=== PATIENT | male | born 1930 | race Caucasian/White ===

== ENCOUNTER → 2016-11-24 18:59 | Outpatient (CLI) | payer MEDICARE, OTHER ==
[~2016-11-24 18:59] MED LIST: BACLOFEN10 MG PO; CALCIUM 500 + D1 TAB PO; CARAFATE1 G PO; ELIQUIS2.5 MG PO; FERROUS SULFAT325 MG PO; HYDROCODONE-APA1 TAB PO; LEVOTHYROXINE100 MCG PO; LUNESTA3 MG PO; METOPROLOL TART50 MG PO; MYRBETRIQ50 MG PO; OCUVITE TABLET1 TA1 PO; PROTONIX40 MG PO; SINGULAIR10 MG PO
== END | disposition home or self-care (01) ==
LOC: D.LABREF 18:59
DX: M17.11 Unilateral primary osteoarthritis, right knee (principal); Z11.8 Encounter for screening for other infectious and parasitic diseases

== ENCOUNTER 2016-12-10 09:00 | Inpatient (IN) | payer MEDICARE, OTHER ==
[~2016-12-10] VITALS: Ht 182.9 cm; Wt 68.0 kg
[~2016-12-10 09:00] MED LIST changes: -ELIQUIS2.5 MG PO; -HYDROCODONE-APA1 TAB PO
[2016-12-10 09:02] LABS: BASOPHILS 0.2 % (0.0-2.0); EOSINOPHILS 2.8 % (0-7); HEMATOCRIT 35.3 % (42.0-54.0); HEMOGLOBIN 11.2 g/dL (13.5-17.5); IMMATURE GRANULOCYTES 0.7 % (0-5); LYMPHOCYTES 13.9 % (15-50); MCH 26.5 pg (26.0-34.0); MCHC 31.7 g/dL (31.0-37.0); MCV 83.6 fL (80.0-100.0); MEAN PLATELET VOLUME 9.3 fL (7.4-10.4); MONOCYTES 10.2 % (2-11); NEUTROPHILS 72.2 % (40-80); PLATELET COUNT 234 10x3/uL (130-400); RBC 4.22 10x6/uL (4.20-6.10); RDW 15.4 % (11.5-14.5); WBC 9.2 10x3/uL (4.8-10.8)
[2016-12-10 09:17] LABS: INR 0.94 (0.85-1.17); PROTIME 12.5 SECONDS (11.6-15.0)
[2016-12-10 09:18] LABS: APTT 32.5 SECONDS (22.8-39.4); CALC OSMOLALITY 266 mosm/kg (275-300); CALCIUM 8.1 mg/dL (8.5-10.1); CARBON DIOXIDE 26.4 mmol/L (21.0-32.0); CHLORIDE - SERUM 98 mmol/L (98-107); CREATININE - SERUM 0.6 mg/dL (0.6-1.3); GLUCOSE 133 mg/dL (74-106); SODIUM 133 mmol/L (136-145); UREA NITROGEN 10 mg/dL (7-18); eGFR NON AFRICAN AMERICAN > 90 mL/min (90-120)
[2016-12-10 10:21] LABS: APPEARANCE HAZY (CLEAR); COLOR YELLOW (YELLOW); SPECIFIC GRAVITY 1.025 (1.005-1.020)
[2016-12-10 10:22] LABS: LEUKOCYTE ESTERASE NEGATIVE (NEGATIVE); NITRITE NEGATIVE (NEGATIVE); PROTEIN TRACE mg/dL (NEGATIVE)
[2016-12-10 10:23] LABS: BILIRUBIN NEGATIVE (NEGATIVE); GLUCOSE NEGATIVE (NEGATIVE); KETONE NEGATIVE (NEGATIVE); UROBILINOGEN NORMAL (NORMAL)
[2016-12-14] VITALS (13 sets, daily range): BP systolic 121–162; BP diastolic 56–83; Ht 182.9 cm; Wt 68.0 kg
--- NOTE | 2016-12-14 10:32 | NUR ---
RIGHT FOOT AND LEG WASHED WITH HIBICLENS AND ALCOHOL PRIOR TO CHLORPREP. PER NAYA CAMPOS
--- NOTE | 2016-12-14 15:22 | NUR ---
* Is the patient Alert and Oriented? Yes 0 * How many steps to enter\exit or inside your home? 0 0 * PCP Dr. Menon 0 * Pharmacy [facility] 0 * Preadmission Environment Home with Family 0 * ADLs Independent 0 * List name and contact numbers for known caregivers / representatives who currently or will assist patient after discharge: Spouse - Jannette [phone] or [phone] 0 * Additional services required to return to the preadmission environment? Yes 0 * Can the patient safely return to the preadmission environment? Yes 0 * Has this patient been hospitalized within the prior 30 days at any hospital? No 12/14/2016 15:23 DCP: Discharge Planning Patient Name: MARIANN PHILIP Admission Status: Elective Accout number: [id number] Admission Date: 12-14-2016 : 1930 Admission Diagnosis: Attending: RENO Current LOS: 1 Anticipated DC Date: 12-17-2016 Planned Disposition: Outpatient PT\OT Primary Insurance: MEDICARE A & B Discharge Planning Comments: CM met with patient & spouse, Jannette, to assess dc plans/needs. Prior to admission, patient states he was independent with all ADL's. He was not using any assistive devices for mobility. Patient & spouse do not think patient can safely get to outpatient physical therapy at discharge. Discussed home health & SNF options. They agree home health for a week or two then outpatient therapy. ONI signed for [facility]. Anticipate DC 12/16 or 12/17. CM will follow.
--- NOTE | 2016-12-14 15:29 | NUR ---
* Is the patient Alert and Oriented? Yes 0 * How many steps to enter\exit or inside your home? 0 0 * PCP Dr. Menon 0 * Pharmacy [facility] 0 * Preadmission Environment Home with Family 0 * ADLs Independent 0 * List name and contact numbers for known caregivers / representatives who currently or will assist patient after discharge: Spouse - Jannette [phone] or [phone] 0 * Additional services required to return to the preadmission environment? Yes 0 * Can the patient safely return to the preadmission environment? Yes 0 * Has this patient been hospitalized within the prior 30 days at any hospital? No 12/14/2016 15:23 DCP: Discharge Planning Patient Name: MARIANN PHILIP Admission Status: Elective Accout number: [id number] Admission Date: 12-14-2016 : 1930 Admission Diagnosis: Attending: RENO Current LOS: 1 Anticipated DC Date: 12-17-2016 Planned Disposition: Outpatient PT\OT Primary Insurance: MEDICARE A & B Discharge Planning Comments: CM met with patient & spouse, Jannette, to assess dc plans/needs. Prior to admission, patient states he was independent with all ADL's. He was not using any assistive devices for mobility. Patient & spouse do not think patient can safely get to outpatient physical therapy at discharge. Discussed home health & SNF options. They agree home health for a week or two then outpatient therapy. ONI signed for [facility]. Anticipate DC 12/16 or 12/17. CM will follow.
--- NOTE | 2016-12-14 18:03 | NUR ---
PT HAS HAD A GOOD DAY WITH PAIN MED X 2 FOR NECK AND BACK PAIN-STATES RIGHT KNEE IS STILL NUMB. ICE TO RIGHT KNEE. CURRENTLY IN CPM MACHINE. BED ALARM ON FOR SAFETY. SCDS HAVE BEEN ON SINCE RETURNING FROM SURG. CALL LIGHT IN REACH
--- NOTE | 2016-12-14 19:20 | NUR ---
RECIEVED SHIFT REPORT. PT IS LYING IN BED. ALERT AND ORIENTED AND ABLE TO VERBALIZE NEEDS. IV IS PATENT AND FLUIDS ARE RUNNING PER ORDER. CPM ON. SCD'S ON. DRESSING TO RIGHT KNEE C/D/I. PT DENIES ANY PAIN AT THIS TIME. NO NEEDS ARE VERBALIZED AT THIS TIME. WILL CONTINUE TO MONITOR. SIDE RAILS ARE UP X 2. BED IS IN LOWEST POSITION. BED ALARM IS ON FOR SAFETY. CALL LIGHT IS WITHIN REACH.
--- NOTE | 2016-12-14 21:03 | NUR ---
SHIFT ASSESSMENT COMPLETED. NIGHT MEDS GIVEN WITH NO PROBLEMS. NO NEEDS ARE VOICED. WILL MONITOR. SIDE RAILS X 2. BED LOW. BED ALARM ON. CALL LIGHT IN REACH.
[2016-12-15 01:00] VITALS: BP 140/80
[2016-12-15 05:00] VITALS: BP 110/50
[2016-12-15 06:24] LABS: HEMATOCRIT 31.3 % (42.0-54.0); HEMOGLOBIN 9.9 g/dL (13.5-17.5); MCHC 31.6 g/dL (31.0-37.0); MCV 82.2 fL (80.0-100.0); MEAN PLATELET VOLUME 9.4 fL (7.4-10.4); RBC 3.81 10x6/uL (4.20-6.10); RDW 15.1 % (11.5-14.5); WBC 10.5 10x3/uL (4.8-10.8)
--- NOTE | 2016-12-15 07:15 | NUR ---
REPORT RECEIVED FROM ECONOMIC ANALYST NURSE. CALL LIGHT IN REACH.
--- NOTE | 2016-12-15 08:23 | NUR ---
ASSESSMENT COMPLETED. PERCOCET PO WITH AM MEDS. IN ROOM. BED ALARM ON. SCDs TO BLE. CALL LIGHT IN REACH. WILL CONTINUE WITH PLAN OF CARE.
[2016-12-15 09:47] VITALS: BP 132/52
--- NOTE | 2016-12-15 10:05 | NUR ---
AMBULATED TO DOOR THEN TO CHAIR WITH ASSISTANCE FROM PT. TOLERATED WELL.
--- NOTE | 2016-12-15 12:10 | NUR ---
EATING LUNCH AT THIS TIME. DENIES NEEDS AT THIS TIME. CALL LIGHT IN REACH.
--- NOTE | 2016-12-15 14:11 | NUR ---
OCUVITE AND NORCO PO. ICE PACK REFILLED AND PLACED TO KNEE. AT BEDSIDE. CALL LIGHT IN REACH.
[2016-12-15 14:31] VITALS: BP 139/54
--- NOTE | 2016-12-15 16:14 | NUR ---
PERCOCET PO PER STUDENT NURSE AND INSTRUCTOR.
[2016-12-15 16:27] VITALS: BP 148/46
--- NOTE | 2016-12-15 18:31 | NUR ---
NO CHANGES IN INITIAL ASSESSMENT. CALL LIGHT IN REACH. BED ALARM ON. SCDs TO BLE. WILL CONTINUE WITH PLAN OF CARE.
--- NOTE | 2016-12-15 19:15 | NUR ---
RECIEVED SHIFT REPORT. PT IS LYING IN BED. ALERT AND ORIENTED AND ABLE TO VERBALIZE NEEDS. IV IS PATENT AND SALINE LOC AT THIS TIME. CPM ON. SCD'S ON. PT IS AMBULATORY WITH ASSISTANCE. DRESSING TO RIGHT KNEE C/D/I. PT STATES PAIN IS 8/10. NO NEEDS ARE VERBALIZED AT THIS TIME. WILL CONTINUE TO MONITOR. SIDE RAILS ARE UP X 2. BED IS IN LOWEST POSITION. BED ALARM IS ON FOR SAFETY. CALL LIGHT IS WITHIN REACH.
--- NOTE | 2016-12-15 20:47 | NUR ---
SHIFT ASSESSMENT COMPLETED. NIGHT MEDS GIVEN WITH NO PROBLEMS. PT C/O PAIN 07/20. ADMINISTERED PRESCRIBED PRN NORCO PER ORDER. DENIES FURTHER NEEDS. WILL MONITOR. SIDE RAILS X 2. BED LOW. BED ALARM ON. CALL LIGHT IN REACH.
[2016-12-15 21:00] VITALS: BP 160/77
[2016-12-16 01:00] VITALS: BP 155/70
[2016-12-16 05:00] VITALS: BP 131/82
[2016-12-16 05:24] LABS: BASOPHILS 0.1 % (0.0-2.0); EOSINOPHILS 2.1 % (0-7); HEMATOCRIT 29.3 % (42.0-54.0); HEMOGLOBIN 9.3 g/dL (13.5-17.5); IMMATURE GRANULOCYTES 0.8 % (0-5); LYMPHOCYTES 11.1 % (15-50); MCH 26.1 pg (26.0-34.0); MCHC 31.7 g/dL (31.0-37.0); MCV 82.1 fL (80.0-100.0); MONOCYTES 16.3 % (2-11); NEUTROPHILS 69.6 % (40-80); PLATELET COUNT 207 10x3/uL (130-400); RBC 3.57 10x6/uL (4.20-6.10); RDW 14.8 % (11.5-14.5); WBC 10.2 10x3/uL (4.8-10.8)
[2016-12-16 05:39] LABS: CALC OSMOLALITY 261 mosm/kg (275-300); CALCIUM 7.4 mg/dL (8.5-10.1); CARBON DIOXIDE 29.1 mmol/L (21.0-32.0); CHLORIDE - SERUM 98 mmol/L (98-107); CREATININE - SERUM 0.6 mg/dL (0.6-1.3); GLUCOSE 128 mg/dL (74-106); SODIUM 130 mmol/L (136-145); UREA NITROGEN 11 mg/dL (7-18); eGFR NON AFRICAN AMERICAN > 90 mL/min (90-120)
--- NOTE | 2016-12-16 07:30 | NUR ---
RECIEVED PT DURING WALKING ROUNDS. PT RESTING IN BED WITH NO COMPLAINTS OF PAIN OR DISCOMFORT AT THIS TIME. ASSESSMENT DONE PER FLOWSHEET. CPM ON AND FUNCTIONING PROPERLY. BED IN LOW POSITION AND CALL LIGHT WITHIN REACH. WILL CONTINUE TO MONITOR.
--- NOTE | 2016-12-16 08:30 | NUR ---
CPM OFF AT THIS TIME. PT TOLERATED WELL. BED IN LOW POSITION AND CALL LIGHT WIHTIN REACH. WILL CONTINUE TO MONITOR.
--- NOTE | 2016-12-16 11:00 | NUR ---
PT USING I.S. WHEN ENTERED THE ROOM. USING EQUIPMENT PROPERLY. BED IN LOW POSITION AND CALL LIGHT WITHIN REACH. WILL CONTINUE TO MONITOR.
[2016-12-16 11:04] VITALS: BP 138/74
[2016-12-16 12:13] VITALS: BP 139/53
--- NOTE | 2016-12-16 13:13 | NUR ---
12/16/2016 13:10 DCP: Discharge Planning Patient Name: MARIANN PHILIP Encounter No: [id number] : 1930 Primary Insurance: MEDICARE A & B Anticipated DC Date: 12-17-2016 Planned Disposition: Home with Home Health External Planned Provider: [facility] DCP follow-up note: Order rec'd for IP rehab eval - patient does not meet criteria. Discussed SNF options with patient & spouse. They prefer to go home with home health. Patient's daughter will be here tomorrow afternoon & will be staying with them while he recovers. Initial HH referral faxed and called to Alyce with [employer] [facility]. They will see patient Wednesday. Patient and family in agreement with discharge plan. No changes to plan. Case management will follow and assist as needed. Maday Srivastava
--- NOTE | 2016-12-16 14:04 | NUR ---
Rehab Prescreening Consult recieved and the chart was reviewed. Spoke to the CM Maday Srivastava RN who said this patient would be discharging home. Yesi Cota RN Clinical Liaison, Rehab
[2016-12-16 16:35] VITALS: BP 138/58
--- NOTE | 2016-12-16 16:46 | NUR ---
FAMILY IN ROOM.PT WITHOUT DISTRESS.CALL LIGHT IN REACH
--- NOTE | 2016-12-16 18:05 | NUR ---
CPM ON AT THIS TIME
--- NOTE | 2016-12-16 19:00 | NUR ---
BEDSIDE REPORT RECEIVED AND CARE OF PT ASSUMED. PT LYING IN SEMI BUTT'S POSITION WATCHING TV. IV IN LEFT FA SALINE LOCKED. CPM IN USE ON RIGHT KNEE. DRESSING ON RIGHT KNEE CLEAN AND DRY. WILL MONITOR CLOSELY FOR NEEDS. CALL LIGHT WITHIN REACH.
[2016-12-16 20:48] VITALS: BP 148/68
--- NOTE | 2016-12-16 21:15 | NUR ---
CPM REMOVED FROM RIGHT KNEE. POSITIONED FOR COMFORT. CALL LIGHT WITHIN REACH.
--- NOTE | 2016-12-16 22:10 | NUR ---
HS MEDICATIONS GIVEN. WILL CONTINUE TO MONITOR FOR NEEDS. CALL LIGHT WITHIN REACH.
--- NOTE | 2016-12-16 22:10 | NUR ---
HS MEDICATIONS GIVEN TO INCLUDE PERCOCET PER PRN ORDER FOR PAIN. WILL CONTINUE TO MONITOR FOR NEEDS. CALL LIGHT WITHIN REACH.
[2016-12-17 00:18] VITALS: BP 139/58
--- NOTE | 2016-12-17 02:17 | NUR ---
PT RESTING QUIETLY IN SUPINE POSITON WITH EYES CLOSED. CALL LIGHT WITHIN REACH.
--- NOTE | 2016-12-17 02:26 | NUR ---
PT LYING IN SEMI BUTT'S POSITION. DECLINES PAIN MEDICATION AT THIS TIME. WILL CONTINUE TO MONITOR CLOSELY FOR NEEDS. CALL LIGHT WITHIN REACH.
[2016-12-17 04:27] VITALS: BP 144/55
[2016-12-17 05:10] LABS: BASOPHILS 0.1 % (0.0-2.0); EOSINOPHILS 2.4 % (0-7); HEMATOCRIT 26.5 % (42.0-54.0); HEMOGLOBIN 8.5 g/dL (13.5-17.5); IMMATURE GRANULOCYTES 0.5 % (0-5); LYMPHOCYTES 9.2 % (15-50); MCH 26.2 pg (26.0-34.0); MCHC 32.1 g/dL (31.0-37.0); MCV 81.5 fL (80.0-100.0); MEAN PLATELET VOLUME 9.9 fL (7.4-10.4); MONOCYTES 12.8 % (2-11); PLATELET COUNT 230 10x3/uL (130-400); RBC 3.25 10x6/uL (4.20-6.10); WBC 11.7 10x3/uL (4.8-10.8)
[2016-12-17 05:29] LABS: CALC OSMOLALITY 263 mosm/kg (275-300); CALCIUM 7.8 mg/dL (8.5-10.1); CARBON DIOXIDE 30.2 mmol/L (21.0-32.0); CHLORIDE - SERUM 98 mmol/L (98-107); CREATININE - SERUM 0.6 mg/dL (0.6-1.3); GLUCOSE 132 mg/dL (74-106); POTASSIUM - SERUM 4.1 mmol/L (3.5-5.1); SODIUM 131 mmol/L (136-145); UREA NITROGEN 11 mg/dL (7-18); eGFR NON AFRICAN AMERICAN > 90 mL/min (90-120)
--- NOTE | 2016-12-17 07:05 | NUR ---
PATIENT RECEIVED ALERT IN MID BUTT POSITION. RESPIRATIONS EVEN AND UNLABORED. RIGHT LEG IN CPM. TOLERATING WELL. DENIES PAIN AND NEEDS. AT BEDSIDE. SIDE RAILS UP X2. BED IN LOW POSITION. CALL LIGHT IN REACH.
[2016-12-17 08:07] VITALS: BP 142/64
--- NOTE | 2016-12-17 08:42 | NUR ---
ALERT IN BED EATING BREAKFAST. TOLERATING WELL. SCHEDULED MEDICATION ADMINISTERED. SIDE RAILS UP X2. BED IN LOW POSITION. CALL LIGHT IN REACH. DENIES PAIN AND OTHER NEEDS.
--- NOTE | 2016-12-17 09:00 | NUR ---
PATIENT ASSISTED UP TO RESTROOM ASSIST X1. INSTRUCTED TO PULL EMERGENCY CORD ONCE FINISHED. STATES UNDERSTANDING.
--- NOTE | 2016-12-17 09:26 | NUR ---
CM MET WITH FAMILY REGARDING POSSIBLE PLACEMENT IN A REHAB FACILITY. FAMILY WAS OPEN TO [facility]. SHERYL CALLED KALE AT [facility] AND SHE WILL BE HERE THIS AM TO EVALUATE THE PATIENT. CM WILL CONTINUE TO FOLLOW PATIENT WITH D/C NEEDS AND PLANS.
[2016-12-17 11:56] VITALS: BP 135/42
--- NOTE | 2016-12-17 12:30 | NUR ---
SITTING UP IN CHAIR AT BEDSIDE EATING LUNCH. TOLERATING WELL. CALL LIGHT IN REACH. DENIES NEEDS.
--- NOTE | 2016-12-17 14:08 | NUR ---
PATIENT ALERT IN MID BUTT POSITION RESTING QUIETLY. RESPIRATIONS EVEN AND UNLABORED. SIDE RAILS UP X2. BED IN LOW POSITION. CALL LIGHT IN REACH.
[2016-12-17 15:37] VITALS: BP 138/55
--- NOTE | 2016-12-17 16:00 | NUR ---
ALERT IN MID BUTT POSITION READING BOOK. NO SIGNS OF DISTRESS NOTED. AT BEDSIDE. SIDE RAILS UP X2. BED IN LOW POSITION. CALL LIGHT IN REACH.
--- NOTE | 2016-12-17 16:38 | NUR ---
CM REASSESSMENT NOTE: PATIENT HAS BE[facility] AND HAS BEEN ACCEPTED.
--- NOTE | 2016-12-17 18:00 | NUR ---
SITTING UP ALERT IN BED EATING DINNER. TOLERATING WELL. DENIES NEED FOR PAIN MEDICATION. CPM TO RIGHT LEG. AT BEDSIDE. SIDE RAILS UP X2. BED IN LOW POSITION. CALL LIGHT IN REACH.
[2016-12-17 20:00] VITALS: BP 132/69
--- NOTE | 2016-12-17 22:34 | NUR ---
REMOVED CPM @ 2100. GAVE PT PERCOCET FOR PAIN 03/20 WITH BEDTIME MEDS. PT TAKING BREAK FROM SCD'S. NO OTHER NEEDS. WILL REASSESS AND CONTINUE TO MONITOR.
[2016-12-18] VITALS (12 sets, daily range): BP systolic 102–148; BP diastolic 53–86
[2016-12-18 04:48] LABS: BASOPHILS 0.1 % (0.0-2.0); EOSINOPHILS 2.8 % (0-7); HEMOGLOBIN 8.1 g/dL (13.5-17.5); IMMATURE GRANULOCYTES 0.7 % (0-5); LYMPHOCYTES 10.7 % (15-50); MCH 26.2 pg (26.0-34.0); MCHC 32.4 g/dL (31.0-37.0); MCV 80.9 fL (80.0-100.0); MEAN PLATELET VOLUME 9.7 fL (7.4-10.4); NEUTROPHILS 71.7 % (40-80); PLATELET COUNT 233 10x3/uL (130-400); RBC 3.09 10x6/uL (4.20-6.10); WBC 9.6 10x3/uL (4.8-10.8)
[2016-12-18 05:04] LABS: CALC OSMOLALITY 264 mosm/kg (275-300); CARBON DIOXIDE 29.8 mmol/L (21.0-32.0); CHLORIDE - SERUM 99 mmol/L (98-107); CREATININE - SERUM 0.6 mg/dL (0.6-1.3); GLUCOSE 122 mg/dL (74-106); POTASSIUM - SERUM 4.1 mmol/L (3.5-5.1); SODIUM 132 mmol/L (136-145); UREA NITROGEN 11 mg/dL (7-18); eGFR NON AFRICAN AMERICAN > 90 mL/min (90-120)
--- NOTE | 2016-12-18 07:30 | NUR ---
REPORT RECEIVED FROM BETH IRVING. CALL LIGHT IN REACH.
--- NOTE | 2016-12-18 09:04 | NUR ---
ASSESSMENT COMPLETED. PERCOCET PO WITH AM MEDS ADMINISTERED. PT IN ROOM. CALL LIGHT IN REACH. WILL CONTINUE WITH PLAN OF CARE.
[2016-12-18] MEDS ORDERED: ELIQUIS2.5 MG PO (09:16)
[2016-12-18] MEDS ORDERED: HYDROCODONE-APA1 TAB PO (09:17)
--- NOTE | 2016-12-18 11:21 | NUR ---
HAS NOT RECEIVED A CALL FROM LAB ABOUT BLOOD. WILL CALL AND CHECK ON IT.
--- NOTE | 2016-12-18 12:17 | NUR ---
BENADRYL AND TYLENOL PER PREMED FOR BLOOD.
--- NOTE | 2016-12-18 12:55 | NUR ---
PRBC INITIATED @ 125 CC/HR VIA PUMP PER BETH GONGORA. VSS. DAUGHTER AT BEDSIDE. CALL LIGHT IN REACH.
--- NOTE | 2016-12-18 13:10 | NUR ---
VITAL SIGNS ARE STILL STABLE. WILL CONTINUE TO MONITOR.
--- NOTE | 2016-12-18 15:38 | NUR ---
SITTING UP IN CHAIR,FAMILY IN ROOM.PT WITHOUT DISTRESS.
--- NOTE | 2016-12-18 16:05 | NUR ---
UNIT OF BLOOD IS COMPLETED. VSS.
--- NOTE | 2016-12-18 16:16 | NUR ---
PERCOCET PO PER C/O PAIN OF 8. FAMILY IN ROOM. CALL LIGHT IN REACH.
--- NOTE | 2016-12-18 16:52 | NUR ---
REPORT CALLED TO BETH BYERS, AT [facility].
--- NOTE | 2016-12-18 18:10 | NUR ---
DC'D TO REHAB VEHICLE VIA WC WITH [facility] AND .
--- NOTE | 2016-12-20 11:01 | OP ---
PATIENT NAME: MARIANN PHILIP MEDICAL RECORD: [id number] :[birth year] LOCATION:[id number] ADMISSION DATE:12/14/16 SURGEON: TAMRA MARINELLI MD DATE OF OPERATION: 12/14/2016 PREOPERATIVE DIAGNOSIS: Degenerative arthritis, right knee. POSTOPERATIVE DIAGNOSIS: Degenerative arthritis, right knee. PROCEDURE: Right total knee arthroplasty. ANESTHESIA: General. INTRAOPERATIVE COMPLICATIONS: None. SUMMARY OF PATHOLOGIC FINDINGS: There is extensive osteoarthritis of the right knee consistent of all 3 compartments. IMPLANTS USED: [employer] Triathlon total knee arthroplasty system, size 7 distal femoral component, non-polyethylene insert, 7 tibial baseplate, 36 patellar component. OPERATIVE SUMMARY IN DETAIL: After obtaining the appropriate preoperative orthopedic surgery consents as well as anesthetic consultation, evaluation and clearance, the patient was brought to the operating room and placed on the operating table in supine position. After adequate general laryngeal mask was administered, tourniquet was placed about the proximal aspect of the right lower extremity. Right lower extremity was then prepped and draped in routine sterile fashion. The leg was elevated and exsanguinated, tourniquet was inflated to 350 mmHg. Routine midline incision was taken down for paramedian arthrotomy. Patella was everted and the distal femur was exposed. Distal intramedullary guide hole was created for distal femoral cutting. Likewise, proximal tibia was exposed. Soft tissue was further dissected away from the proximal tibia. Intramedullary guide hole was created for cutting in the proximal tibia. Measurements were taken. Chamfer cuts were made on the distal femur. Final trials corresponding to the above-mentioned components were put into place, taken through range of motion and thought to be stable in all planes. Final distal femoral and proximal tibial preparations were then followed by excising the articular surface from the arthritic patella. Final patellar preparations were made. The knee was irrigated substantially with pulsatile lavage. Bony ends were dried. Final components were cemented into place. All excess cement was removed. After the cement was allowed to harden, the knee was taken through range of motion and found to be stable in all planes with good patellar tracking. The paramedian arthrotomy was closed with #2 Ethibond followed by #1 Vicryl, 2-0 Vicryl, and skin suha. Sterile dressings were applied. The patient was awakened, taken to recovery room in stable condition. All final needle and sponge counts were correct. TRANSINT:[id number] Voice Confirmation ID: [id number] DOCUMENT ID: [id number] OPERATIVE REPORT [id number] MARIANN PHILIP MD, TAMRA SERRANO at 1101 CC: [id number] DICTATION DATE: 12/14/16 1106 CHIEF DEVELOPMENT OFFICER: 12/14/16 1743 DIS IN 12/18/16 [place] [id number] [place] [id number]
== END 2016-12-18 18:10 | DRG 470 ==
LOC: D.SDCHOLD 09:00 → D.MS 12-14 06:27 → D.SDCHOLD 12-14 06:27 → D.MS 12-14 11:21
PROVIDERS: Family Medicine; ADMIT Orthopaedic Surgery
PROC: 0SRC0J9 Replacement of Right Knee Joint with Synthetic Substitute, Cemented, Open Approach (ICD-10-PCS; principal; 2016-12-14 09:15)
DX: M17.11 Unilateral primary osteoarthritis, right knee (principal); D62 Acute posthemorrhagic anemia; E87.1 Hypo-osmolality and hyponatremia; K59.00 Constipation, unspecified; I10 Essential (primary) hypertension; J45.909 Unspecified asthma, uncomplicated

== ENCOUNTER 2017-02-04 10:16 | Emergency (ER) | payer MEDICARE, OTHER ==
[~2017-02-04 10:16] MED LIST changes: +ELIQUIS2.5 MG PO; +HYDROCODONE-APA1 TAB PO
[2017-02-04 11:11] LABS: BASOPHILS 0.5 % (0-2); EOSINOPHILS 3.6 % (0-7); HEMATOCRIT 32.7 % (42.0-54.0); HEMOGLOBIN 10.1 g/dL (13.5-17.5); IMMATURE GRANULOCYTES 0.6 % (0-5); LYMPHOCYTES 17.7 % (15-50); MCHC 30.9 g/dL (31.0-37.0); MCV 84.3 fL (80.0-100.0); MEAN PLATELET VOLUME 9.2 fL (7.4-10.4); MONOCYTES 12.3 % (2-11); NEUTROPHILS 65.3 % (40-80); PLATELET COUNT 257 10x3/uL (130-400); RBC 3.88 10x6/uL (4.20-6.10); WBC 6.4 10x3/uL (4.8-10.8)
[2017-02-04 11:26] LABS: ALBUMIN 2.6 g/dL (3.4-5.0); ALKALINE PHOSPHATASE 56 U/L (46-116); ALT (SGPT) 18 U/L (10-68); BILIRUBIN - TOTAL 0.23 mg/dL (0.2-1.3); CALC OSMOLALITY 267 mosm/kg (275-300); CALCIUM 8.4 mg/dL (8.5-10.1); CARBON DIOXIDE 29.8 mmol/L (21.0-32.0); CHLORIDE - SERUM 101 mmol/L (98-107); CREATININE - SERUM 0.7 mg/dL (0.6-1.3); GLUCOSE 125 mg/dL (74-106); POTASSIUM - SERUM 4.1 mmol/L (3.5-5.1); PROTEIN - SERUM 5.4 g/dL (6.4-8.2); SODIUM 134 mmol/L (136-145); UREA NITROGEN 10 mg/dL (7-18); eGFR NON AFRICAN AMERICAN > 90 mL/min (90-120)
[2017-02-04 12:06] LABS: APPEARANCE HAZY (CLEAR); BILIRUBIN NEGATIVE (NEGATIVE); COLOR DK YELLOW (YELLOW); GLUCOSE NEGATIVE (NEGATIVE); KETONE NEGATIVE (NEGATIVE); LEUKOCYTE ESTERASE NEGATIVE (NEGATIVE); NITRITE NEGATIVE (NEGATIVE); PROTEIN NEGATIVE (NEGATIVE); SPECIFIC GRAVITY 1.015 (1.005-1.020); UROBILINOGEN NORMAL (NORMAL)
== END 2017-02-04 14:14 | disposition home or self-care (01) ==
LOC: D.ER 10:16
PROVIDERS: Emergency Medicine
DX: R53.1 Weakness (principal); I10 Essential (primary) hypertension

== ENCOUNTER → 2017-02-05 12:56 | Outpatient (CLI) | payer MEDICARE, OTHER ==
--- NOTE | 2017-02-08 10:25 | EC ---
PATIENT:MARIANN PHILIP DATE OF SERVICE: 02/05/17 SEX: M MEDICAL RECORD: [id number] DATE OF : [birth year] LOCATION:[facility] AGE OF PATIENT: 86 ADMISSION DATE: 02/05/17 REFERRING PHYSICIAN: INTERPRETING PHYSICIAN: TERESA COTTON MD ECHOCARDIOGRAM REPORT ECHO CHARGES 4 ECHO COMPLETE CLINICAL DIAGNOSIS: WEAKNESS/DIZZINESS HX HTN ECHOCARDIOGRAPHIC MEASUREMENTS (adult normal given) AC root (d.<3.7cm) 3.6 LV Septum d (<1.2 cm> 1.4 Valve Excursion 1.3 LV Septum (systole) 1.5 Left Atria (s.<4.0cm> 4.1 LVPW d(<1.2cm) 1.4 RV (d.<2.3cm) 4.2 LVPW (sytole) 1.6 LV diastole(<5.6CM) 6.2 MV E-F(>70mm/sec) LV systole 4.2 LVOT Diameter 1.4 MV exc.(>10mm) 1.4 Est.ejection fraction (50-75%) Pericardial Effusion N DOPPLER: LVIT A 124 E 102 LA RVSP 39 LVOT 157 AOP1/2T Asc. Ao 241 RVOT RA PA AV Gradient Peak 23.15 AV Mean 12.37 AV Area 1.2 MV Gradient Peak 7.36 MV Mean 2.65 MV Area COMMENTS: Specimen Transporter: Jose JERNIGAN Missile Inspector:2 Dr. Brewster TAPE# PACS DATE OF SERVICE: 02/05/2017 FINDINGS: 1. Left ventricle chamber size is within normal limits. Left ventricular systolic function is normal. Overall ejection fraction estimated at 55%. 2. Left atrium is enlarged at 4.1 cm. Right atrium and right ventricular chamber sizes are as well mildly dilated. 3. Valvular structures: Aortic valve demonstrates mild calcific aortic stenosis. Valve area calculates 1.2 cm-squared. There is a gradient of 23 mm across the valve. The remaining valvular structures have normal structure and ECHOCARDIOGRAM REPORT [id number] MARIANN PHILIP motion. 4. Doppler interrogation elsewise reveals moderate mitral regurgitation, moderate tricuspid regurgitation, no other valvular insufficiency or stenosis. Pulmonary systolic pressure is estimated at 39 mmHg. 5. No evidence of pericardial effusion or left ventricular thrombus. TRANSINT:[id number] Voice Confirmation ID: [id number] DOCUMENT ID: [id number] TERESA COTTON MD at 1025 CC: [id number] DICTATION DATE: 02/05/17 1533 COUNTY ENGINEER: 02/06/17 0425 DEP CLI 02/05/17 [place] [id number] [place] [address]
== END | disposition home or self-care (01) ==
LOC: D.ECHO 12:56
DX: R55 Syncope and collapse (principal)

== ENCOUNTER 2017-04-08 21:50 | Inpatient (IN) | payer MEDICARE, OTHER ==
[~2017-04-08] VITALS: Ht 182.9 cm; Wt 74.8 kg
--- NOTE | ~2017-04-08 | EC ---
PATIENT:MARIANN PHILIP DATE OF SERVICE: 04/08/17 SEX: M MEDICAL RECORD: [id number] DATE OF : [birth year] LOCATION:[facility] D230 AGE OF PATIENT: 86 ADMISSION DATE: 04/08/17 REFERRING PHYSICIAN: INTERPRETING PHYSICIAN: TERESA GOODSON MD ECHOCARDIOGRAM REPORT ECHO CHARGES 5 ECHO LIMITED 1 DOPPLER ECHO COLOR FLOW 2 DOPPLER ECHO PULSE CLINICAL DIAGNOSIS: ECHOCARDIOGRAPHIC MEASUREMENTS (adult normal given) AC root (d.<3.7cm) 0 LV Septum d (<1.2 cm> 0 Valve Excursion 0 LV Septum (systole) 0 Left Atria (s.<4.0cm> 0 LVPW d(<1.2cm) 0 RV (d.<2.3cm) 0 LVPW (sytole) 0 LV diastole(<5.6CM) 0 MV E-F(>70mm/sec) 0 LV systole 0 LVOT Diameter 0 MV exc.(>10mm) 0 Est.ejection fraction (50-75%) Pericardial Effusion N DOPPLER: LVIT 0 A 0 E 0 LA 0 RVSP 44.0 LVOT 0 AOP1/2T 0 Asc. Ao 0 RVOT 0 RA 0 PA 0 AV Gradient Peak 0 AV Mean 0 AV Area 0 MV Gradient Peak 0 MV Mean 0 MV Area 0 COMMENTS: LIMITED STUDY (2-D,COLOR,DOPPLER) COMPLETE ECHO DONE ON 02/05/17 Driller'S Assistant: Debo LAZO Can Coverer:1 Dr. Goodson TAPE# PACS LIMITED TWO-DIMENSIONAL ECHOCARDIOGRAM WITH DOPPLER 1. Left ventricular chamber size is within normal limits. Left ventricular systolic function is normal. Overall ejection fraction is estimated at 50 percent. 2. Valvular structures have normal structure and motion. 3. Doppler interrogation reveals moderate mitral regurgitation, moderate tricuspid regurgitation. Pulmonary artery systolic pressure is mildly elevated estimated at 44 millimeters of mercury. 4. No evidence of pericardial effusion or left ventricular thrombus. ECHOCARDIOGRAM REPORT [id number] TAMERAMAGNUSMARIANNTERESA DIANE MD CC: [id number] DICTATION DATE: 04/09/17 1145 YARN WINDER: TC 04/10/17 1143 ADM IN [address] [place] [address]
[2017-04-08 21:45] VITALS: BP 182/89
[2017-04-08 22:00] VITALS: BP 166/81
--- NOTE | 2017-04-08 22:00 | NUR ---
PATIENT ARRIVED FROM AMBULANCE VIA STRETCHER. ABLE TO MOVE TO BED INDEPENDENTLY. ALERT TO PERSON, PLACE, TIME, AND SITUATION. SLIGHT FACIAL DROOPING ON LEFT SIDE OF FACE. PATIENT HAS REGAINED FULL STRENGTH OF RIGHT SIDE OF BODY. ARM/SVP OPERATIONS/LEG STRENGTH ALL 5/5 AND BILATERAL. PUPILS ARE ERRLA, 3MM AND BRISK. SEE ADMISSION ASSESSMENT FOR MORE DETAILS.
--- NOTE | 2017-04-08 22:10 | NUR ---
DR BERMAN CONSULTED, NEW ORDERS RECEIVED.
[2017-04-08 23:00] VITALS: BP 137/74
--- NOTE | 2017-04-08 23:00 | NUR ---
PATIENT RESTING IN BED WITH EYES CLOSED. VSS.
[2017-04-08 23:51] VITALS: BP 182/89
[2017-04-09] VITALS (25 sets, daily range): BP systolic 126–178; BP diastolic 69–99; Ht 182.9 cm; Wt 74.8 kg
--- NOTE | 2017-04-09 01:00 | NUR ---
NO CHANGES WITH PATIENT. ALERT AND ORIENTED, FULL STRENGTH IN EXTREMITIES. WILL MONITOR.
--- NOTE | 2017-04-09 03:05 | NUR ---
REASSESSMENT COMPLETE, SEE SHIFT ASSESSMENT. PATIENT ALERT AND ORIENTED. NO ACUTE CHANGES. WILL MONITOR.
--- NOTE | 2017-04-09 05:00 | NUR ---
PATIENT DENIES NEED AT THIS TIME. VSS. ALERT AND ORIENTED X4.
--- NOTE | 2017-04-09 07:00 | NUR ---
REC'D REPORT AND RESUMED CARE, O2 VIA RA, AWAKE AND ORIENTED X4, NO SIGNS OF DISTRESS, LET AC SL, DRESSING CDI, SWAB CAPS IN USE, FOLLOWS COMMANDS, SBP, 178, OTHER VSS, ASSESSMENT COMPLETE PER FLOWSHEET, CALL LIGHT IN REACH, REPOSITIONS SELF INDEPENDENTLY, C/O OF ANGELO, 02/17, WILL REVIEW MEDS, NO OTHER NEEDS AT THIS TIME
--- NOTE | 2017-04-09 07:15 | NUR ---
DR BERMAN AT BEDSIDE, NEW ORDERS GIVEN
[2017-04-09 08:11] LABS: HEMOGLOBIN A1C 5.8 % (4.8-6.0)
[2017-04-09 08:26] LABS: CHOL - HDL RATIO 2.3 ratio (2.3-4.9); LDL-HDL RATIO 1.1 ratio (1.5-3.5)
--- NOTE | 2017-04-09 08:30 | NUR ---
LAB PERSONNEL HERE FOR BLOOD DRAW, TOLERATED WITHOUT DIFFICULTY
--- NOTE | 2017-04-09 08:38 | NUR ---
DR RICARDO HERE FOR EVAL, NEW ORDERS GIVEN
--- NOTE | 2017-04-09 09:00 | NUR ---
AND SISTER AT BEDSIDE, STATUS UPDATED, AWAITING TO SPEAK WITH MD RE:POC, NO OTHER NEEDS AT THIS TIME
--- NOTE | 2017-04-09 09:25 | NUR ---
CALL LIGHT ON, STANDBY ASSIST TO BSC,
--- NOTE | 2017-04-09 09:35 | NUR ---
CALL LIGHT ON, SMALL FORMED STOOL TO [place], INDEPENDENT WITH SKIN CARE, STAND BY ASSIST BTB
--- NOTE | 2017-04-09 10:30 | NUR ---
OOB AND AMBULATED WITH PHYSICAL LEAD SYSTEMS ENGINEER, TOLERATED WITHOUT DIFFICULTY, UP IN CHAIR WITH NO SIGNS OF DISTRESS
--- NOTE | 2017-04-09 11:12 | NUR ---
BTB WITH ASSIST POST SMALL FORMED BM, ECHO COMPLETED BY CARDIO NEURO TECH, SCD'S PLACED PER ORDER, NO OTHER ACUTE CHANGES FROM PREVIOUS ASSESSMENT
--- NOTE | 2017-04-09 12:00 | NUR ---
AND SISTER AT BEDSIDE, STATUS UPDATED, VOICES NO CONCERNS AT THIS TIME
--- NOTE | 2017-04-09 12:15 | NUR ---
CALL LIGHT ON, AND SISITER CONCERNED THAT HE HAS NOT HAD ANY THING TO EAT, EDUCATED RE: NEED FOR SWALLOW EVAL, AWAITING, PATHOLOGIST TO COMPLETE EVAL
--- NOTE | 2017-04-09 13:15 | NUR ---
CALL LIGHT ON, LARGE FORMED STOOL TO BSC, INDEPENDENT WITH PERSONAL CARE, JOHNNA ASSIST BACK TO CHAIR WITH JOHNNA CARVER
--- NOTE | 2017-04-09 14:37 | NUR ---
* Is the patient Alert and Oriented? Yes 0 * How many steps to enter\exit or inside your home? 0 0 * PCP Dr. Menon 0 * Pharmacy [facility] [address] * Preadmission Environment Home with Family 0 * ADLs Partial Dependent 0 * Partial ADLs (Assistance needed) Ambulation 0 * Equipment Cane Rolling Walker 0 * List name and contact numbers for known caregivers / representatives who currently or will assist patient after discharge: Spouse Lora Bhatia [phone] Sister Gretchen [phone] 0 * Can the patient safely return to the preadmission environment? Yes 0 * Has this patient been hospitalized within the prior 30 days at any hospital? No 04/09/2017 14:37 DCP: Discharge Planning Patient Name: MARIANN PHILIP Admission Status: Elective Accout number: [id number] Admission Date: 04-08-2017 : 1930 Admission Diagnosis:TRANSIENT CEREBRAL ISCHEMIC ATTACK, UNSPECIFIED Attending: TAB Current LOS: 1 Anticipated DC Date: 04-10-2017 Planned Disposition: Home Primary Insurance: MEDICARE A & B Discharge Planning Comments: CM met with patient to assess dc plans/needs. Patient states he lives at home with his , Lora Bhatia, and daughter, Sharda Baxter. He reports he primarily uses a cane for mobility but uses a walker at time - he states [place] walks at the mall 2-4 times per week. He has had home health services in the past with [facility]. At [place], he plans to return home with his family. He may benefit from home health at [place]. CM will follow & assist as needed. Director Non Profit: Maday Srivastava
--- NOTE | 2017-04-09 15:00 | NUR ---
NGT PLACED TO RIGHT NARE PER PROTOCAL, WITHOUT DIFFUCULTY, PLACEMENT CHECKED WITH 30 CC AIR BOLUS, NGT PLACE IN THAYER, PROCEDURE TOLERATED
--- NOTE | 2017-04-09 16:00 | NUR ---
I AND O'S COMPLETED, SEE FLOWSHEET
--- NOTE | 2017-04-09 16:30 | NUR ---
TF OSMILATE 1.5 MARY ELLEN INITIATED PER RECOMMENDATION AND PROTOCAL AT 25 CC/HR WITH 25 CC/HR, H2O FLUSH,
--- NOTE | 2017-04-09 16:40 | NUR ---
CALL LIGHT ON, UP AT BEDSIDE TO USE URINAL, 400 CC VOIDED, BTB WITH ASSIST
--- NOTE | 2017-04-09 18:00 | NUR ---
AT BEDSIDE, STATUS UPDATED, BROUGHT IN LIST FOR MEDS, COPY PLACE ON CHART
--- NOTE | 2017-04-09 19:00 | NUR ---
SHIFT ASSESSMENT COMPLETE. PATIENT ALERT AND ORIENTED. PUPILS ARE ERRLA, FACE SYMMECTRICAL, BILATERAL STRENGTH OF 5/5 IN ARMS AND LEGS. NGT IN RIGHT NARE INFUSING OSMALYTE @ 25CC/HR, AIR BOLUS TO SECURE LOCATION. RESIDUAL < 10CC, INCREASED TO 35CC/HR AT THIS TIME. LUNG SOUNDS CLEAR, RR EVEN AND NONLABORED. S1S2 WITH NSR ON MONITOR WITH A RATE OF 82. BOWEL SOUNDS ACTIVE. PATIENT ESCORTED TO BEDSIDE COMMODE, PASSED SMALL BM. GATE STEADY. VOIDING CLEAR URINE WITHOUT DIFFICULTY. PERIPHERAL PULSES +2. PIV IN LFA IS C/D/I WITH NO REDNESS OR SWELLING. SALINE LOCKED AT THIS TIME. DENIES PAIN OR NEED AT THIS TIME. WILL MONITOR.
--- NOTE | 2017-04-09 21:00 | NUR ---
NO VISITORS AT THIS TIME, DENIES NEED.
--- NOTE | 2017-04-09 23:05 | NUR ---
REASSESSMENT COMPLETE, NO ACUTE CHANGES. VSS, WILL MONITOR.
[2017-04-10] VITALS (13 sets, daily range): BP systolic 125–169; BP diastolic 62–93
--- NOTE | 2017-04-10 01:00 | NUR ---
PATIENT RESTING IN BED WITH EYES CLOSED, RR EVEN AND NONLABORED, VSS.
--- NOTE | 2017-04-10 03:00 | NUR ---
REASSESSMENT COMPLETE, SEE FLOWSHEET. NO CHANGES.
[2017-04-10 03:51] LABS: BASOPHILS 0.3 % (0-2); EOSINOPHILS 2.4 % (0-7); HEMATOCRIT 36.2 % (42.0-54.0); HEMOGLOBIN 11.6 g/dL (13.5-17.5); IMMATURE GRANULOCYTES 0.2 % (0-5); LYMPHOCYTES 14.7 % (15-50); MCH 25.8 pg (26.0-34.0); MCV 80.4 fL (80.0-100.0); MEAN PLATELET VOLUME 9.6 fL (7.4-10.4); MONOCYTES 12.2 % (2-11); NEUTROPHILS 70.2 % (40-80); PLATELET COUNT 276 10x3/uL (130-400); WBC 8.6 10x3/uL (4.8-10.8)
[2017-04-10 04:05] LABS: CALC OSMOLALITY 264 mosm/kg (275-300); CALCIUM 8.7 mg/dL (8.5-10.1); CARBON DIOXIDE 27.1 mmol/L (21.0-32.0); CHLORIDE - SERUM 100 mmol/L (98-107); CREATININE - SERUM 0.6 mg/dL (0.6-1.3); GLUCOSE 132 mg/dL (74-106); MAGNESIUM - SERUM 1.8 mg/dL (1.8-2.4); PHOSPHOROUS 3.4 mg/dL (2.5-4.9); POTASSIUM - SERUM 3.7 mmol/L (3.5-5.1); SODIUM 132 mmol/L (136-145); UREA NITROGEN 8 mg/dL (7-18); eGFR NON AFRICAN AMERICAN > 90 mL/min (90-120)
--- NOTE | 2017-04-10 05:05 | NUR ---
RESTING IN BED WITH EYES CLOSED. VSS.
[2017-04-10 07:20] LABS: FOLATE (FOLIC ACID) - SERUM >20.0 ng/mL (>3.0)
--- NOTE | 2017-04-10 07:30 | NUR ---
RECEIVED PT FOR CARE. PT RESTING COMFORTABLY. ASSESSMENT COMPLETED.
--- NOTE | 2017-04-10 07:54 | NUR ---
DR. DAVALOS AT BEDSIDE. ORDERS TO D/C NGT AT THIS TIME.
--- NOTE | 2017-04-10 07:54 | NUR ---
DR. DAVALOS AT BEDSIDE.
--- NOTE | 2017-04-10 09:30 | NUR ---
PT'S AT BEDSIDE. UPDATED ON PT'S STATUS. PT ABLE TO WIPE SELF DOWN WITH BATH WIPES AND GOWN CHANGED. NO OTHER NEEDS AT THIS TIME.
--- NOTE | 2017-04-10 11:40 | NUR ---
TRANSPORTATION WORKER AT BEDSIDE FOR US OF NECK.
--- NOTE | 2017-04-10 12:27 | NUR ---
CALLED DIETARY AND THEY REPORT THAT THE REGIONAL COORDINATOR IS CRYSTAL TODAY AND SHE RECEIVED THE ORDER FOR BOLUS TUBE FEEDING RECOMMENDATIONS AND KNOWS ABOUT THE CONSULT.
--- NOTE | 2017-04-10 12:37 | NUR ---
REPORT CALLED TO ARMANI BARAJAS.
--- NOTE | 2017-04-10 12:55 | NUR ---
PT TRANSPORTED TO 2216 BY WHEELCHAIR. HANDOFF REPORT GIVEN TO BARAJAS AT BEDSIDE. PT ORIENTED TO ROOM. CALL LIGHT AND PHONE WITHIN REACH. PT STATES HE WILL CALL TO LET HER KNOW THAT HE HAS MOVED TO A DIFFERENT ROOM. PT HAS GLASSES ON FACE AND SLIPPERS AT BEDSIDE.
--- NOTE | 2017-04-10 12:55 | NUR ---
RECEIVED TO ROOM 2216 FROM ICU VIA . ORIENTED TO ROOM AND CALL LIGHT SYSTEM. CALL LIGHT IN REACH. WILL CONTINUE WITH PLAN OF CARE.
--- NOTE | 2017-04-10 13:10 | NUR ---
Nutrition Consult: Consult received to change TF to bolus regimen due to pt's mobility and desire to be active in room per RN. Noted swallow eval has been ordered. Will put order in to bolus TF of Osmolite 1.5: 1 can @ 0800, 1 can @ 1000, 1.5 cans @ 1200, 1 can @ 1500, 1 can @ 1800. Flush NGT with 50 ml H2O before and after each bolus. Flush NGT with [address] will continue to monitor pt progress.
--- NOTE | 2017-04-10 14:30 | NUR ---
NO NEEDS VOICED AT THIS TIME. CALL LIGHT IN REACH.
--- NOTE | 2017-04-10 15:46 | NUR ---
1ST TUBE FEEDING BOLUS COMPLETED PER NGT. PATIENT WAS UNABLE TO TOLERATE THE FULL CAN OF OSMOLITE. ONLY ABLE TO TAKE IN 270 CC OF FEEDING. FLUSHED WITH 50 CC BEFORE AND AFTER BOLUS.
--- NOTE | 2017-04-10 16:06 | NUR ---
TYLENOL CRUSHED AND ADMINISTERED PER NGT PER C/O HEADACHE. VISITORS IN ROOM. CALL LIGHT IN REACH.
--- NOTE | 2017-04-10 18:16 | NUR ---
NO CHANGES IN INITIAL ASSESSMENT. CALL LIGHT IN REACH. WILL CONTINUE WITH PLAN OF CARE.
--- NOTE | 2017-04-10 18:27 | NUR ---
2ND BOLUS FEEDING GIVEN. PATIENT ABLE TO TOLERATE IT ALL. SCDs TO BLE. NO OTHER CHANGES IN INITIAL ASSESSMENT. IN ROOM. CALL LIGHT IN REACH. WILL CONTINUE WITH PLAN OF CARE.
[2017-04-11] VITALS: BP 104/71
[2017-04-11 04:00] VITALS: BP 168/69
[2017-04-11 05:05] LABS: BASOPHILS 0.2 % (0-2); EOSINOPHILS 2.4 % (0-7); HEMATOCRIT 35.5 % (42.0-54.0); HEMOGLOBIN 11.4 g/dL (13.5-17.5); IMMATURE GRANULOCYTES 0.3 % (0-5); LYMPHOCYTES 13.2 % (15-50); MCH 25.9 pg (26.0-34.0); MCHC 32.1 g/dL (31.0-37.0); MCV 80.5 fL (80.0-100.0); MEAN PLATELET VOLUME 9.8 fL (7.4-10.4); MONOCYTES 12.1 % (2-11); NEUTROPHILS 71.8 % (40-80); PLATELET COUNT 295 10x3/uL (130-400); RBC 4.41 10x6/uL (4.20-6.10); WBC 10.7 10x3/uL (4.8-10.8)
[2017-04-11 05:26] LABS: ALBUMIN 2.5 g/dL (3.4-5.0); ALKALINE PHOSPHATASE 51 U/L (46-116); ALT (SGPT) 16 U/L (10-68); BILIRUBIN - TOTAL 0.41 mg/dL (0.2-1.3); CALC OSMOLALITY 273 mosm/kg (275-300); CALCIUM 8.5 mg/dL (8.5-10.1); CARBON DIOXIDE 26.8 mmol/L (21.0-32.0); CHLORIDE - SERUM 103 mmol/L (98-107); CREATININE - SERUM 0.6 mg/dL (0.6-1.3); GLUCOSE 122 mg/dL (74-106); MAGNESIUM - SERUM 1.8 mg/dL (1.8-2.4); PHOSPHOROUS 3.5 mg/dL (2.5-4.9); POTASSIUM - SERUM 3.5 mmol/L (3.5-5.1); PROTEIN - SERUM 5.3 g/dL (6.4-8.2); SODIUM 137 mmol/L (136-145); UREA NITROGEN 10 mg/dL (7-18); eGFR NON AFRICAN AMERICAN > 90 mL/min (90-120)
--- NOTE | 2017-04-11 07:20 | NUR ---
REPORT RECEIVED FROM TRUCK DRIVER SALESPERSON NURSE. CALL LIGHT IN REACH.
--- NOTE | 2017-04-11 08:00 | NUR ---
OSMOLITE 1.5 MARY ELLEN BOLUS FEEDING WITH 50 CC FLUSH BEFORE AND AFTERWARDS.
[2017-04-11 08:04] VITALS: BP 165/77
--- NOTE | 2017-04-11 09:00 | NUR ---
IN RADIOLOGY AT THIS TIME FOR BARIUM SWALLOW. PILL WAS LODGED IN PATIENT'S ESOPHAGUS BUT WENT DOWN AFTER I WENT TO RADIOLOGY AND REMOVED THE NGT WITH TIP INTACT. PATIENT IS NOW ABLE TO EAT FOODS WITH THICKENED LIQUIDS.
[2017-04-11] MEDS ORDERED: NORVASC5 MG PO (09:43)
[2017-04-11] MEDS ORDERED: KEFLEX500 MG PO (09:51)
[2017-04-11] MEDS ORDERED: PLAVIX75 MG PO (09:52)
--- NOTE | 2017-04-11 11:07 | NUR ---
ASSESSMENT COMPLETED. AM MEDS ADMINISTERED. WAITING ON CM TO SET UP HOME HEALTH FOR DC. SITTING IN CHAIR. IN ROOM. CALL LIGHT IN REACH. WILL CONTINUE WITH PLAN OF CARE.
[2017-04-11 12:00] VITALS: BP 131/64
--- NOTE | 2017-04-11 12:09 | NUR ---
Rehab Prescreening Consult recieved this AM from [facility]. Reviewed patient's chart and saw a discharge order to home with OP therapy orders. The PT notes indicated he was ambulating 250 ft without difficulty and in hallway with his . Called and spoke to the patient's nurse Ellen Keen who confirms patient is discharging to home. Yesi Cota RN Clinical Liaison, Rehab
--- NOTE | 2017-04-11 12:46 | NUR ---
LATE ENTRY 1030 PATIENT FOR DISCHARGE TO HOME W/ [facility] FOR SPEECH AND SN. CM MET W/ PT AND HIS , AIMEE PHILIP. DISCUSSED HOME HEALTH PROVIDERS. PREVIOUS NOTED PATIENT IS FAMILIAR W/ [facility]. PATIENT CHOICE FORM SIGNED. IMM PRESENTED AND SIGNED. PATIENT AND HAD NO QUESTIONS. TC TO [facility]. SPOKE WITH DAIRY EQUIPMENT SPECIALIST NURSESERGEY. FAXED MD ORDERS AND REFERRAL. [facility] WILL CALL PATIENT REGARDING DATE OF VISIT. SHERYL SPOKE WITH PRIMARY NURSE,
--- NOTE | 2017-04-11 12:54 | NUR ---
RXs CALLED IN TO [facility] ON [facility]. DC INSTRUCTIONS EXPLAINED TO PATIENT AND .
--- NOTE | 2017-04-11 13:10 | NUR ---
DC'D TO VEHICLE VIA WC WITH .
== END 2017-04-11 13:10 | disposition home health service (06) | DRG 66 ==
LOC: D.ICU 21:50 → D.MS 04-10 12:40
PROVIDERS: Family Medicine; Psychiatry & Neurology Neurology; ADMIT Family Medicine
DX: I63.512 Cerebral infarction due to unspecified occlusion or stenosis of left middle cerebral artery (principal); I10 Essential (primary) hypertension; E03.9 Hypothyroidism, unspecified; R13.10 Dysphagia, unspecified; J45.909 Unspecified asthma, uncomplicated

== ENCOUNTER → 2017-05-19 07:59 | Outpatient (CLI) | payer MEDICARE, OTHER ==
[2017-04-09 10:05] VITALS: BMI 22.3
[~2017-05-19 07:59] MED LIST changes: +KEFLEX500 MG PO; +NORVASC5 MG PO; +PLAVIX75 MG PO
== END | disposition home or self-care (01) ==
LOC: D.US 07:59
DX: R10.9 Unspecified abdominal pain (principal)

== ENCOUNTER → 2017-06-09 11:20 | Outpatient (CLI) | payer MEDICARE, OTHER ==
[2017-04-09 10:05] VITALS: BMI 22.3
== END | disposition home or self-care (01) ==
LOC: D.RAD 11:20
DX: C90.00 Multiple myeloma not having achieved remission (principal)

== ENCOUNTER → 2018-07-19 12:58 | Outpatient (CLI) | payer MEDICARE, OTHER ==
[2017-04-09 10:05] VITALS: BMI 22.3
== END | disposition home or self-care (01) ==
LOC: D.RAD 12:58
DX: R13.10 Dysphagia, unspecified (principal)